=== PATIENT | female | born 1990 | race Caucasian/White ===

== ENCOUNTER 2020-01-28 17:41 | Outpatient (CLI) | payer OTHER | END 2020-01-28 17:42 | disposition home or self-care (01) | LOC: COV 17:41 | PROVIDERS: ATTEND Family Medicine | DX: R05 Cough (principal); M79.10 Myalgia, unspecified site; R53.83 Other fatigue; J02.9 Acute pharyngitis, unspecified | CPT/HCPCS: 81599 ==

== ENCOUNTER 2020-06-07 19:38 | Outpatient (CLI) | payer OTHER | END 2020-06-07 19:39 | disposition home or self-care (01) | LOC: COV 19:38 | PROVIDERS: ATTEND Family Medicine | DX: R05 Cough (principal); M79.10 Myalgia, unspecified site; J02.9 Acute pharyngitis, unspecified; R43.9 Unspecified disturbances of smell and taste; R09.81 Nasal congestion; Z20.828 Contact with and (suspected) exposure to other viral communicable diseases ==

== ENCOUNTER 2022-03-23 09:06 | Outpatient (CLI) | payer MEDICAID ==
[2022-03-23 11:30] LABS: BASOPHILS # (AUTO) 0.1 10^3/uL (0.0-0.1); BASOPHILS % (AUTO) 1.5 %; EOSINOPHILS # (AUTO) 0.3 10^3/uL (0.0-0.7); EOSINOPHILS % (AUTO) 4.7 %; HCT - HEMATOCRIT 38.4 % (37.0-47.0); LYMPHOCYTES # (AUTO) 1.8 10^3/uL (1.5-3.5); LYMPHOCYTES % (AUTO) 32.1 %; MEAN CORPUSCULAR HEMOGLOBIN 25.7 pg (27.0-31.0); MEAN CORPUSCULAR HGB CONC 31.3 g/dL (32.0-36.0); MEAN CORPUSCULAR VOLUME 82.2 fL (81.0-99.0); MEAN PLATELET VOLUME 11.2 fL (7.9-10.8); MONOCYTES # (AUTO) 0.3 10^3/uL (0.0-1.0); MONOCYTES % (AUTO) 5.1 %; NEUTROPHILS # (AUTO) 3.1 10^3/uL (1.5-6.6); NEUTROPHILS % (AUTO) 56.4 %; PLT - PLATELET COUNT 245 10^3/uL (130-450); RED BLOOD COUNT 4.67 10^6/uL (4.20-5.40); RED CELL DISTRIBUTION WIDTH 15.4 % (12.0-15.0); WHITE BLOOD COUNT 5.5 x10^3/uL (4.8-10.8)
[2022-03-23 11:48] LABS: ALBUMIN 4.2 g/dL (3.2-5.5); ALKALINE PHOSPHATASE 55 IU/L (42-121); ALT ALANINE AMINOTRANSFERASE 16 IU/L (10-60); AST ASPARTATE AMINOTRANSFERASE 18 IU/L (10-42); BILIRUBIN,TOTAL 0.5 mg/dL (0.2-1.0); BUN - BLOOD UREA NITROGEN 13 mg/dL (6-20); CALCIUM 9.7 mg/dL (8.5-10.3); CARBON DIOXIDE - CO2 27 mmol/L (21-32); CHLORIDE 103 mmol/L (101-111); CHOL/HDL RATIO 3.3 (<4.4); CHOLESTEROL 165 mg/dL; CREATININE 0.7 mg/dL (0.4-1.0); GFR - MDRD 96 (>89); GLUCOSE 103 mg/dL (70-100); HDL CHOLESTEROL 50 mg/dL; LDL CHOLESTEROL,CALCULATED 100 mg/dL; POTASSIUM 4.3 mmol/L (3.5-5.0); SODIUM 138 mmol/L (135-145); TOTAL PROTEIN 8.5 g/dL (6.7-8.2); TRIGLYCERIDES 77 mg/dL; VLDL CHOLESTEROL 15 mg/dL
[2022-03-23 11:55] LABS: THYROID STIMULATING HORMONE 4.58 uIU/mL (0.34-5.60)
[2022-03-23 14:29] LABS: ESTIMATED AVERAGE GLUCOSE 111 mg/dL (70-100); HEMOGLOBIN A1c% 5.5 % (4.27-6.07)
== END 2022-03-23 09:07 | disposition home or self-care (01) ==
LOC: LAB.N 09:06
PROVIDERS: ATTEND Nurse Practitioner Family
DX: I10 Essential (primary) hypertension (principal); E55.9 Vitamin D deficiency, unspecified; E66.01 Morbid (severe) obesity due to excess calories
CPT/HCPCS: 36415; 80053; 80061; 82306; 83036; 83721; 84443; 85025

== ENCOUNTER 2022-04-07 15:44 | Outpatient (CLI) | payer MEDICAID | END 2022-04-07 15:45 | disposition short-term general hospital (02) | LOC: EMS 15:44 | DX: R10.10 Upper abdominal pain, unspecified (principal) | CPT/HCPCS: A0425; A0429; A0999 ==

== ENCOUNTER 2023-02-05 10:25 | Emergency (ER) | payer MEDICAID ==
[2023-02-05 10:31] VITALS: BP 141/95
--- NOTE | 2023-02-05 10:43 | ED Physician Documentation ---
PD HPI UPPER EXT INJURY - Stated complaint Stated Complaint: RT KNEE PX - Chief complaint Chief Complaint: Ext Problem - History obtained from History obtained from: Patient - Additonal information Additional information: She has been increasing her walking lately. Without specific trauma developed anterior right knee pain about 4 days ago which is improved with IcyHot patches and a splint. PD PAST MEDICAL HISTORY - Past Surgical History Past Surgical History: No - Present Medications Home Medications: Ambulatory Orders Medication Instructions Recorded Confirmed Etonogestrel [Nexplanon] 68 mg SQ 04/13/13 04/13/13 diphenhydrAMINE [Benadryl] 25 mg PO Q4-6H PRN #20 capsule 04/17/13 predniSONE [Deltasone] 60 mg PO DAILY 4 Days tablet 04/17/13 Meloxicam [Mobic] 7.5 mg PO BID PRN #20 tablet 02/05/23 - Allergies Allergies/Adverse Reactions: Allergies Allergy/AdvReac Type Severity Reaction Status Date / Time Penicillins Allergy unknown Verified 02/05/23 10:31 - Social History Does the pt smoke?: No Smoking Status: Never smoker Does the pt drink ETOH?: No Does the pt have substance abuse?: No - POLST Patient has POLST: No PD ED PE NORMAL - Vitals Vital signs reviewed: Yes - General General: Alert and oriented X 3, No acute distress - Extremities Extremities: Other (She has some crepitance with flexion and extension consistent with PFS. No specific knee tenderness otherwise. Ligamentous testing seems normal. Exam somewhat limited by body habitus.) - Neuro Neuro: Alert and oriented X 3, Normal speech Results - Vitals Vitals: Vital Signs - 24 hr 02/05/23 10:29 Temperature 36.1 C L Heart Rate 81 Respiratory 16 Rate Blood Pressure 141/95 H O2 Saturation 100 Oxygen O2 Source Room air - Rads (name of study) 4 view x-ray of the right knee shows no acute abnormality. She does have some degenerative disease and a small effusion. Relevant Findings:: Final report received, EMP independent interpretation of test PD Medical Decision Making - ED course ED course: 32-year-old woman with atraumatic right knee pain. Seems like patellofemoral syndrome on exam. Discussed home physical therapy and follow-up. Given close return precautions. No sign of infection, no redness, warmth. Departure - Departure Disposition: 01 Home, Self Care Clinical Impression: Right knee pain Condition: Good Record reviewed to determine appropriate education?: Yes Instructions: Patellofemoral Syndrome, ED Knee Pain [facility] Follow-Up: [facility] [Provider Group] Prescriptions: Meloxicam [Mobic] 7.5 mg PO BID PRN #20 tablet PRN Reason: Pain Comments: As discussed, based on your exam and negative x-ray I believe you have patellofemoral syndrome a common cause of pain especially in young women. It is fine to continue to wear the knee brace and use IcyHot. I am prescribing a stronger anti-inflammatory. Do not take it with ibuprofen as they are in the same family. If not improved you can follow-up with your primary care physician for consideration of physical therapy and/or the orthopedics clinic, the numbers on this form. Return if worse Forms: Activity restrictions Discharge Date/Time: 02/05/23 11:08
[2023-02-05] MEDS: MELOXICAM 7.5 MG TABLET PO STA (10:45)
--- NOTE | 2023-02-05 11:13 | XRAY Report ---
PROCEDURE: Knee 4 View RT INDICATIONS: knee pain TECHNIQUE: 4 views of the right knee(s) were acquired. COMPARISON: None. FINDINGS: Bones: No fractures or dislocations. No suspicious bony lesions. Mild tricompartment degeneration , most pronounced in the medial femorotibial compartment. Soft tissues: Vjqmd-tc-qajzccmy knee joint effusion. No suspicious soft tissue calcifications or mas ses. IMPRESSION: 1. No acute bony abnormality. 2. Degenerative joint disease. 3. Sxdmw-[id number] knee joint effusion. Reviewed by: Rosita Lopez MD on 02/05/2023 11:11 AM PDT Approved by: Rosita Lopez MD on 02/05/2023 11:11 AM PDT Station ID: [id number]
== END 2023-02-05 11:08 | disposition home or self-care (01) ==
LOC: ED 10:25
DX: M25.561 Pain in right knee (principal)
CPT/HCPCS: 73564; 99283; 99284; A9270

== ENCOUNTER 2023-06-10 15:24 | Emergency (ER) | payer MEDICAID ==
[2023-06-10 15:42] VITALS: BP 152/100; O2SAT 96
--- NOTE | 2023-06-10 16:11 | ED Physician Documentation ---
History of Present Illness - Stated complaint Stated Complaint: RASH - Chief complaint Chief Complaint: General - History obtained from History obtained from: Patient - History of Present Illness Timing: How many days ago (2) Pain level max: 5 Pain level now: 5 - Additonal information Additional information: 32-year-old female presents to the emergency department stating that she developed a rash 2 days ago on her left flank. She states that it is painful. Started with pain in the area 2 days before the rash. She was seen at [facility], had no acute findings on blood work or CT scan. Was sent home. She is here for evaluation due to increasing pain. No fevers. No chills. Has not had similar symptoms previously. No recent illnesses. Nothing makes it better or worse Review of Systems Constitutional: denies: Fever, Chills GI: denies: Vomiting, Diarrhea Skin: denies: Rash Neurologic: denies: Headache PD PAST MEDICAL HISTORY - Past Medical History Cardiovascular: Hypertension Psych: Depression, ADD/ADHD - Past Surgical History Past Surgical History: No General: Cholecystectomy - Present Medications Home Medications: Ambulatory Orders Medication Instructions Recorded Confirmed Etonogestrel [Nexplanon] 68 mg SQ 04/13/13 04/13/13 diphenhydrAMINE [Benadryl] 25 mg PO Q4-6H PRN #20 capsule 04/17/13 predniSONE [Deltasone] 60 mg PO DAILY 4 Days tablet 04/17/13 Meloxicam [Mobic] 7.5 mg PO BID PRN #20 tablet 02/05/23 HYDROcod/ACETAM 5/325 [[place] 5/325] 1 - 2 ea PO Q6H PRN #14 tablet 06/10/23 Valacyclovir HCl [Valtrex] 1,000 mg PO TID #21 tablet 06/10/23 predniSONE [Deltasone] 60 mg PO DAILY #21 tablet 06/10/23 - Allergies Allergies/Adverse Reactions: Allergies Allergy/AdvReac Type Severity Reaction Status Date / Time Penicillins Allergy unknown Verified 02/05/23 10:31 - Social History Does the pt smoke?: No Smoking Status: Never smoker Does the pt drink ETOH?: No Does the pt have substance abuse?: No - POLST Patient has POLST: No PD ED PE NORMAL - Vitals Vital signs reviewed: Yes - General General: Alert and oriented X 3, No acute distress - HEENT HEENT: Moist mucous membranes - Neck Neck: Supple, no meningeal sign - Cardiac Cardiac: RRR - Respiratory Respiratory: No respiratory distress, Clear bilaterally - Abdomen Abdomen: Soft, Non tender, Non distended - Derm Derm: Warm and dry, Other (L flank - dermatomal vesicular exanthem. no pustules. ) - Neuro Neuro: Alert and oriented X 3 - Psych Psych: Normal mood, Normal affect Results - Vitals Vitals: Vital Signs - 24 hr 06/10/23 15:35 Temperature 37.1 C Heart Rate 87 Respiratory 18 Rate Blood Pressure 152/100 H O2 Saturation 96 Oxygen O2 Source Room air PD Medical Decision Making - ED course Complexity details: considered differential, d/w patient ED course: Patient with left flank shingles. Will place on prednisone, Valtrex. We will have her follow-up with her doctor for further care. No signs of secondary infection. Patient counseled regarding signs and symptoms for which I believe and urgent re-evaluation would be necessary. Patient with good understanding of and agreement to plan and is comfortable going home at this time This document was made in part using voice recognition software. While efforts are made to proofread this document, sound alike and grammatical errors may occur. Departure - Departure Disposition: 01 Home, Self Care Clinical Impression: Shingles Qualifiers: Herpes zoster complications: without complications Qualified Code(s): B02.9 - Zoster without complications Condition: Good Instructions: ED Shingles Follow-Up: Sujey Armijo ARNP [Primary Care Provider] - Prescriptions: predniSONE [Deltasone] 60 mg PO DAILY #21 tablet HYDROcod/ACETAM 5/325 [[place] 5/325] 1 - 2 ea PO Q6H PRN #14 tablet PRN Reason: Pain Valacyclovir HCl [Valtrex] 1,000 mg PO TID #21 tablet Comments: Your prescriptions were sent to [facility] in [place]. You appear to have shingles on emanation today. Please take the medications as prescribed. Please return if you worsen. This should improve over the next several days. I am prescribing a short course of narcotic pain medication for you. These are potentially dangerous and addictive medications that should be used carefully. These medications may constipate you. Take an slie-olm-kcrbevu stool softener (docusate) twice daily with plenty of water while taking these medications. If you go 24 hours without a bowel movement, take lvaw-bbr-lxojana miralax, per package instructions. Do not drink or drive while taking these medications. If you received narcotic or sedating medications while in the emergency department, do not drive for 24 hours. Store this medication in a safe, secure place and out of reach of children. It is a violation of federal law to give or sell this medication to another person or to use in a manner other than prescribed. The ED will not refill narcotic prescriptions, including prescriptions lost or stolen. To dispose of unwanted medications: 1. [facility] [address] in [place] has a medication drop box. They accept prescription medications (in pill form) Sunday through Sunday 9:00 a.m. to 5:00 p.m. 2. [facility] [employer] accepts prescription medications (in pill form only) for disposal year round. Call for more information. 3. Contact the [facility] for the next [facility] sponsored prescription drug collection event. , [phone], or [phone]; Forms: PCP List Discharge Date/Time: 06/10/23 16:16
== END 2023-06-10 16:16 | disposition home or self-care (01) ==
LOC: ED 15:24
DX: B02.9 Zoster without complications (principal); I10 Essential (primary) hypertension; Z79.899 Other long term (current) drug therapy
CPT/HCPCS: 99282; 99283

== ENCOUNTER 2024-01-10 08:29 | Outpatient (CLI) | payer MEDICAID ==
[2024-01-10 12:07] LABS: BASOPHILS # (AUTO) 0.1 10^3/uL (0.0-0.1); BASOPHILS % (AUTO) 1.4 %; EOSINOPHILS # (AUTO) 0.3 10^3/uL (0.0-0.7); HCT - HEMATOCRIT 42.1 % (37.0-47.0); LYMPHOCYTES # (AUTO) 1.8 10^3/uL (1.5-3.5); MEAN CORPUSCULAR HEMOGLOBIN 26.6 pg (27.0-31.0); MEAN CORPUSCULAR HGB CONC 30.9 g/dL (32.0-36.0); MEAN CORPUSCULAR VOLUME 86.3 fL (81.0-99.0); MEAN PLATELET VOLUME 11.5 fL (7.9-10.8); MONOCYTES # (AUTO) 0.3 10^3/uL (0.0-1.0); MONOCYTES % (AUTO) 5.2 %; NEUTROPHILS % (AUTO) 60.2 %; PLT - PLATELET COUNT 241 10^3/uL (130-450); RED BLOOD COUNT 4.88 10^6/uL (4.20-5.40); RED CELL DISTRIBUTION WIDTH 13.7 % (12.0-15.0); WHITE BLOOD COUNT 6.6 x10^3/uL (4.8-10.8)
[2024-01-10 12:25] LABS: THYROID STIMULATING HORMONE 6.78 uIU/mL (0.34-5.60)
[2024-01-10 12:27] LABS: ALBUMIN/GLOBULIN RATIO 1.1 (1.0-2.2); ALKALINE PHOSPHATASE 63 IU/L (42-121); ALT ALANINE AMINOTRANSFERASE 15 IU/L (10-60); AST ASPARTATE AMINOTRANSFERASE 16 IU/L (10-42); BILIRUBIN,TOTAL 0.5 mg/dL (0.2-1.0); BUN - BLOOD UREA NITROGEN 14 mg/dL (6-20); CALCIUM 10.1 mg/dL (8.5-10.3); CARBON DIOXIDE - CO2 29 mmol/L (21-32); CHLORIDE 103 mmol/L (101-111); CHOL/HDL RATIO 3.4 (<4.4); CHOLESTEROL 157 mg/dL; CREATININE 0.5 mg/dL (0.6-1.3); GFR - MDRD 140 (>89); GLUCOSE 84 mg/dL (74-104); HDL CHOLESTEROL 46 mg/dL; LDL CHOLESTEROL,CALCULATED 89 mg/dL; LDL/HDL RATIO 1.9 (<4.4); POTASSIUM 4.3 mmol/L (3.5-4.5); SODIUM 137 mmol/L (135-145); TOTAL PROTEIN 7.7 g/dL (6.4-8.9); TRIGLYCERIDES 108 mg/dL (48-352); VLDL CHOLESTEROL 22 mg/dL
[2024-01-10 12:42] LABS: ESTIMATED AVERAGE GLUCOSE 111 mg/dL (70-100); HEMOGLOBIN A1c% 5.5 % (4.27-6.07)
== END 2024-01-10 08:30 | disposition home or self-care (01) ==
LOC: LAB.N 08:29
PROVIDERS: ATTEND Nurse Practitioner Family
DX: I10 Essential (primary) hypertension (principal); E66.01 Morbid (severe) obesity due to excess calories
CPT/HCPCS: 36415; 80053; 80061; 83036; 83721; 84439; 84443; 85025